=== PATIENT | female | born 1980 | race Hispanic/Latino ===

== ENCOUNTER 2021-12-21 16:35 | Inpatient (IN) | payer OTHER ==
[~2021-12-21] VITALS: Ht 154.9 cm; Wt 63.2 kg
[2021-12-21 16:58] LABS: BASOPHILS % (AUTO) 0.2 % (0.0-5.0); EOSINOPHILS % (AUTO) 1.1 % (0.0-8.0); HEMATOCRIT 25.6 % (36-48); LYMPHOCYTES % (AUTO) 32.2 % (21.0-51.0); MEAN CORPUSCULAR HEMOGLOBIN 25.6 pg (27.0-33.0); MEAN CORPUSCULAR HGB CONC 30.5 g/dL (32.0-36.0); MEAN CORPUSCULAR VOLUME 83.9 fL (79-99); NEUTROPHILS % (AUTO) 61.1 % (40.0-77.0); PLATELET COUNT (AUTO) 282 K/uL (130-400); RED BLOOD CELL COUNT(AUTO) 3.05 MIL/uL (4.00-5.50); RED CELL DISTRIBUTION WIDTH 17.4 % (11.0-15.5); WHITE BLOOD COUNT (AUTO) 9.9 K/uL (4.8-10.8)
[2021-12-21] MEDS ORDERED: ONDANSETRON 4MG INJ IVP ONE (17:00)
[2021-12-21] MEDS ORDERED: MORPHINE 2 MG SYG IVP ONE (17:00)
[2021-12-21 17:10] LABS: CREATININE 1.4 mg/dL (0.5-1.5); POTASSIUM 3.5 mmol/L (3.5-5.1)
[2021-12-21 17:11] LABS: INR 1.13 (0.85-1.15); PROTHROMBIN TIME 12.2 SEC (9.6-11.6)
[2021-12-21 17:12] LABS: PARTIAL THROMBOPLASTIN TIME 30.1 SEC (26.3-35.5)
[2021-12-21 17:15] LABS: ALBUMIN 1.4 g/dL (3.5-5.0); BILIRUBIN,TOTAL 0.3 mg/dL (0.2-1.0); TOTAL PROTEIN, SERUM 7.1 g/dL (6.0-8.3)
[2021-12-21] MEDS ORDERED: SPIRONOLACTONE 25 MG TAB PO SCH (19:00)
[2021-12-21] MEDS ORDERED: FUROSEMIDE 40MG VIAL IV ONE (19:00)
[2021-12-21] MEDS: FUROSEMIDE 40MG VIAL IV SCH (20:15)
[2021-12-21 21:18] VITALS: BP 128/85
[2021-12-22] VITALS (11 sets, daily range): BP systolic 102–139; BP diastolic 52–89
[2021-12-22 03:47] LABS: BASOPHILS % (AUTO) 0.3 % (0.0-5.0); EOSINOPHILS % (AUTO) 1.4 % (0.0-8.0); HEMATOCRIT 25.6 % (36-48); LYMPHOCYTES % (AUTO) 28.9 % (21.0-51.0); MEAN CORPUSCULAR HEMOGLOBIN 26.3 pg (27.0-33.0); MEAN CORPUSCULAR HGB CONC 30.5 g/dL (32.0-36.0); MEAN CORPUSCULAR VOLUME 86.2 fL (79-99); MONOCYTES % (AUTO) 6.4 % (3.0-13.0); NEUTROPHILS % (AUTO) 62.6 % (40.0-77.0); PLATELET COUNT (AUTO) 246 K/uL (130-400); RED BLOOD CELL COUNT(AUTO) 2.97 MIL/uL (4.00-5.50); RED CELL DISTRIBUTION WIDTH 17.3 % (11.0-15.5); WHITE BLOOD COUNT (AUTO) 9.5 K/uL (4.8-10.8)
[2021-12-22 04:04] LABS: HEMOGLOBIN A1C 9.2 % (4.0-6.0)
[2021-12-22 04:26] LABS: CREATININE 1.4 mg/dL (0.5-1.5); MAGNESIUM 1.8 mg/dL (1.80-2.40); PHOSPHORUS 4.2 mg/dL (2.5-4.9); POTASSIUM 3.7 mmol/L (3.5-5.1); THYROID STIMULATING HORMONE 11.07 uIU/mL (0.36-3.74)
[2021-12-22] MEDS ORDERED: ACET-3194 PO (05:31)
[2021-12-22] MEDS: FUROSEMIDE 40MG VIAL IV SCH ×2 (06:04→17:47)
[2021-12-22] MEDS: FAMOTIDINE 20MG VIAL IV SCH (08:00)
[2021-12-22] MEDS: SPIRONOLACTONE 25 MG TAB PO SCH (08:01)
[2021-12-22] MEDS ORDERED: ALBUMIN (HUMAN) 25% 200 ML IV SCH (10:45)
[2021-12-22] MEDS ORDERED: ACETAMINOPHEN WITH CODEINE 1 TAB TAB PO PRN ×2 (12:30)
[2021-12-22] MEDS ORDERED: MORPHINE 2 MG SYG IVP ONE (13:25)
[2021-12-22] MEDS: ACETAMINOPHEN WITH CODEINE 1 TAB TAB PO PRN (13:38)
[2021-12-22 14:01] LABS: SPECIMENTYPE,BODY FLUID ASCITES
[2021-12-22 14:02] LABS: APPEARANCE BODY FLUID CLEAR (CLEAR); BODY FLUID WBC 40 /cu. mm.; COLOR,BODY FLUID LT YELLOW (LT YELLOW); TOTAL VOLUME,BODY FLUID 15000 mL
[2021-12-22 14:03] LABS: BODY FLUID RBC 345 /cu. mm.
[2021-12-22 14:14] LABS: BF LYMPHOCYTE 42 %; BF MESOTHELIAL 7 %; BF MONOCYTE 5 %
[2021-12-22] MEDS ORDERED: LIDOCAINE HCL 400MG/20ML VIAL ONE (15:00)
[2021-12-22] MEDS ORDERED: ONDANSETRON 4MG INJ ONE (17:51)
[2021-12-22] MEDS ORDERED: ONDANSETRON 4MG INJ IVP PRN (18:00)
[2021-12-23] VITALS (7 sets, daily range): BP systolic 105–129; BP diastolic 64–81
[2021-12-23] MEDS: ACETAMINOPHEN WITH CODEINE 1 TAB TAB PO PRN ×3 (00:09→16:57)
[2021-12-23 04:14] LABS: BASOPHILS % (AUTO) 0.3 % (0.0-5.0); EOSINOPHILS % (AUTO) 1.1 % (0.0-8.0); HEMATOCRIT 22.8 % (36-48); LYMPHOCYTES % (AUTO) 24.5 % (21.0-51.0); MEAN CORPUSCULAR HEMOGLOBIN 25.3 pg (27.0-33.0); MEAN CORPUSCULAR HGB CONC 30.3 g/dL (32.0-36.0); MEAN CORPUSCULAR VOLUME 83.5 fL (79-99); MONOCYTES % (AUTO) 5.3 % (3.0-13.0); NEUTROPHILS % (AUTO) 68.3 % (40.0-77.0); PLATELET COUNT (AUTO) 193 K/uL (130-400); RED BLOOD CELL COUNT(AUTO) 2.73 MIL/uL (4.00-5.50); RED CELL DISTRIBUTION WIDTH 17.2 % (11.0-15.5); WHITE BLOOD COUNT (AUTO) 11.1 K/uL (4.8-10.8)
[2021-12-23 04:30] LABS: ALBUMIN 1.5 g/dL (3.5-5.0); BILIRUBIN,TOTAL 0.4 mg/dL (0.2-1.0); CREATININE 1.5 mg/dL (0.5-1.5); MAGNESIUM 1.5 mg/dL (1.80-2.40); POTASSIUM 3.1 mmol/L (3.5-5.1); TOTAL PROTEIN, SERUM 4.9 g/dL (6.0-8.3)
[2021-12-23] MEDS ORDERED: POTASSIUM CHLORIDE 20MEQ/100ML 100 ML IV PRN (05:00)
[2021-12-23] MEDS ORDERED: KCL 20 MEQ ERTAB PO PRN (05:00)
[2021-12-23] MEDS ORDERED: POTASSIUM CHLORIDE 10% ELIXIR 20 MEQ/15 ML UDCUP PO PRN (05:00)
[2021-12-23] MEDS ORDERED: LIDOCAINE HCL-MPF 1% 2ML VIAL IV PRN (05:00)
[2021-12-23] MEDS: MAGNESIUM 2GM PREMIX 50ML 50 ML IV PRN (05:01)
[2021-12-23] MEDS: FAMOTIDINE 20MG VIAL IV SCH (09:00)
[2021-12-23] MEDS: SPIRONOLACTONE 25 MG TAB PO SCH (12:32)
[2021-12-23] MEDS: FUROSEMIDE 40MG VIAL IV SCH ×2 (12:32→21:09)
[2021-12-24 03:27] VITALS: BP 125/62
[2021-12-24 05:06] LABS: BASOPHILS % (AUTO) 0.3 % (0.0-5.0); EOSINOPHILS % (AUTO) 1.1 % (0.0-8.0); HEMATOCRIT 30.9 % (36-48); LYMPHOCYTES % (AUTO) 23.5 % (21.0-51.0); MEAN CORPUSCULAR HEMOGLOBIN 27.2 pg (27.0-33.0); MEAN CORPUSCULAR HGB CONC 32.7 g/dL (32.0-36.0); MEAN CORPUSCULAR VOLUME 83.1 fL (79-99); MONOCYTES % (AUTO) 6.9 % (3.0-13.0); NEUTROPHILS % (AUTO) 67.6 % (40.0-77.0); PLATELET COUNT (AUTO) 210 K/uL (130-400); RED BLOOD CELL COUNT(AUTO) 3.72 MIL/uL (4.00-5.50); RED CELL DISTRIBUTION WIDTH 16.5 % (11.0-15.5); WHITE BLOOD COUNT (AUTO) 11.4 K/uL (4.8-10.8)
[2021-12-24 05:21] LABS: CREATININE 1.2 mg/dL (0.5-1.5); MAGNESIUM 1.6 mg/dL (1.80-2.40); POTASSIUM 3.4 mmol/L (3.5-5.1)
[2021-12-24] MEDS: LEVOTHYROXINE 50 MCG TABLET PO SCH (06:29)
[2021-12-24] MEDS: FUROSEMIDE 40MG VIAL IV SCH ×2 (06:30→18:06)
[2021-12-24 07:30] VITALS: BP 132/93
[2021-12-24] MEDS: FAMOTIDINE 20MG VIAL IV SCH (09:00)
[2021-12-24] MEDS: SPIRONOLACTONE 25 MG TAB PO SCH (10:38)
[2021-12-24 11:00] VITALS: BP 110/74
[2021-12-24] MEDS ORDERED: FURO40TA7 PO (11:49)
[2021-12-24] MEDS ORDERED: LEVO50TA4 PO (11:49)
[2021-12-24] MEDS ORDERED: SPIR25TA6 PO (11:49)
[2021-12-24] MEDS ORDERED: MAGNESIUM 2GM PREMIX 50ML 50 ML IV SCH (12:00)
[2021-12-24] MEDS: ACETAMINOPHEN WITH CODEINE 1 TAB TAB PO PRN ×2 (12:18→18:04)
[2021-12-24] MEDS ORDERED: KCL 20 MEQ ERTAB PO ONE (12:55)
[2021-12-24] MEDS: MAGNESIUM 2GM PREMIX 50ML 50 ML IV PRN (14:24)
[2021-12-24 16:00] VITALS: BP 118/83
[2021-12-24 20:00] VITALS: BP 112/72
[2021-12-25 00:04] VITALS: BP 115/75
[2021-12-25 05:00] VITALS: BP 110/74
[2021-12-25] MEDS: LEVOTHYROXINE 50 MCG TABLET PO SCH (06:16)
[2021-12-25] MEDS: FUROSEMIDE 40MG VIAL IV SCH ×2 (06:16→20:36)
[2021-12-25 07:30] VITALS: BP 123/78
[2021-12-25] MEDS: FAMOTIDINE 20MG VIAL IV SCH (09:00)
[2021-12-25] MEDS: SPIRONOLACTONE 25 MG TAB PO SCH (09:53)
[2021-12-25] MEDS: ACETAMINOPHEN WITH CODEINE 1 TAB TAB PO PRN ×2 (10:29→20:37)
[2021-12-25 11:00] VITALS: BP 102/66
[2021-12-25 15:30] VITALS: BP 125/81
[2021-12-25 20:00] VITALS: BP 115/65
[2021-12-26] VITALS: BP 102/71
[2021-12-26 04:00] VITALS: BP 123/79
[2021-12-26 04:28] LABS: BASOPHILS % (AUTO) 0.4 % (0.0-5.0); EOSINOPHILS % (AUTO) 1.8 % (0.0-8.0); HEMATOCRIT 29.8 % (36-48); LYMPHOCYTES % (AUTO) 29.6 % (21.0-51.0); MEAN CORPUSCULAR HEMOGLOBIN 26.8 pg (27.0-33.0); MEAN CORPUSCULAR HGB CONC 31.9 g/dL (32.0-36.0); MEAN CORPUSCULAR VOLUME 83.9 fL (79-99); MONOCYTES % (AUTO) 7.1 % (3.0-13.0); NEUTROPHILS % (AUTO) 60.6 % (40.0-77.0); PLATELET COUNT (AUTO) 237 K/uL (130-400); RED BLOOD CELL COUNT(AUTO) 3.55 MIL/uL (4.00-5.50); RED CELL DISTRIBUTION WIDTH 16.9 % (11.0-15.5); WHITE BLOOD COUNT (AUTO) 10.1 K/uL (4.8-10.8)
[2021-12-26 04:40] LABS: CREATININE 1.1 mg/dL (0.5-1.5); POTASSIUM 3.8 mmol/L (3.5-5.1)
[2021-12-26] MEDS: LEVOTHYROXINE 50 MCG TABLET PO SCH (05:31)
[2021-12-26] MEDS: FUROSEMIDE 40MG VIAL IV SCH (06:23)
[2021-12-26] MEDS: ACETAMINOPHEN WITH CODEINE 1 TAB TAB PO PRN (06:57)
[2021-12-26 07:00] VITALS: BP 128/85
[2021-12-26] MEDS: FAMOTIDINE 20MG VIAL IV SCH (09:00)
[2021-12-26] MEDS: SPIRONOLACTONE 25 MG TAB PO SCH (09:12)
[2021-12-26 11:49] VITALS: BP 120/70
[2021-12-26] MEDS ORDERED: MIDAZOLAM HCL 1 MG/ML 2ML VIAL ONE (13:58)
[2021-12-26] MEDS ORDERED: HEPARIN 10,000 UNIT/10ML (1,000 UNIT/ML) VIAL ONE (13:58)
[2021-12-26] MEDS ORDERED: IOHEXOL-350 50ML VIAL IV ONE (13:58)
[2021-12-26] MEDS ORDERED: FENTANYL CITRATE PF 50 MCG/1 ML 2ML VIAL ONE (13:59)
[2021-12-26] MEDS ORDERED: LIDOCAINE HCL 1% MDV 50ML VIAL ONE (14:01)
[2021-12-26 15:30] VITALS: BP 107/71
== END 2021-12-26 17:15 | disposition hospice, home (50) | DRG 433 ==
LOC: EDH 16:35 → EDHIP 16:36 → 4BH 20:50 → 4CH 12-23 06:40 → 4BH 12-26 07:43
PROVIDERS: ADMIT Hospitalist; ATTEND Hospitalist
PROC: 0W9G3ZZ Drainage of Peritoneal Cavity, Percutaneous Approach (ICD-10-PCS; principal; 2021-12-22)
PROC: 30233N1 Transfusion of Nonautologous Red Blood Cells into Peripheral Vein, Percutaneous Approach (ICD-10-PCS; 2021-12-23)
DX: K74.60 Unspecified cirrhosis of liver (principal); R18.8 Other ascites; D61.9 Aplastic anemia, unspecified; J90 Pleural effusion, not elsewhere classified; E44.1 Mild protein-calorie malnutrition; Z90.710 Acquired absence of both cervix and uterus; R62.7 Adult failure to thrive; E11.9 Type 2 diabetes mellitus without complications; E03.9 Hypothyroidism, unspecified; Z68.26 Body mass index [BMI] 26.0-26.9, adult
CPT/HCPCS: 10030; 36415; 49083; 49418; 74176; 75989; 76705; 80048; 80053; 82948; 83036; 83735; 84100; 84443; 84702; 85025; 85610; 85730; 86850; 86900; 86901; 86923; 87071; 87205; 89051; 99156; 99157; C1729; G0378; J1644; J1940; J2250; J2405; J3010; J3475; J3490; P9016; P9046; Q9967